=== PATIENT | female | born 1980 | race Caucasian/White ===

== ENCOUNTER 2019-08-14 06:38 | Emergency (ER) | payer BC ==
[~2019-08-14] VITALS: Ht 162.6 cm; Wt 68.0 kg
[2019-08-14] MEDS ORDERED: SUCR1TAB31 PO (06:50)
[2019-08-14] MEDS ORDERED: HYOS-19 PO (06:50)
[2019-08-14] MEDS ORDERED: DICY10CA59 PO (06:50)
[2019-08-14] MEDS ORDERED: PANT40TA2 PO (06:50)
--- NOTE | 2019-08-14 06:50 | NUR ---
Patient ambulated with stable gait. Speech is clear, speaks in complete sentences. No acute neuro deficits noted. A/Ox4. Patient came for c/o RUQ abd pain for 2 days, patient has had poor apetite. Pain 9/10, radiating to the back. Respiratory even and unlabored, no cough no sob. No s/sx of acute cardiovascular distress noted. Reports nausea but no vomiting or any symptoms--no dysuria.
[2019-08-14] MEDS ORDERED: IV NORMAL SALINE 1000 ML BAG IV ONE (07:15)
[2019-08-14] MEDS ORDERED: HYDROMORPHONE 2 MG/1 ML DISP.SYRIN ONE (07:28)
[2019-08-14] MEDS ORDERED: ONDANSETRON 4 MG/2 ML VIAL ONE (07:28)
[2019-08-14] MEDS ORDERED: ONDANSETRON 4 MG/2 ML VIAL IV ONE (07:30)
[2019-08-14] MEDS ORDERED: HYDROMORPHONE 1 MG/1 ML DISP.SYRIN IV ONE (07:30)
[2019-08-14 07:42] LABS: BASOPHILS % (AUTO) 0.6 % (0.0-2.0); EOSINOPHILS # (AUTO) 0.5 K/uL (0.0-0.7); EOSINOPHILS % (AUTO) 6.1 % (0.0-7.0); HEMATOCRIT 36.5 % (31.2-41.9); HEMOGLOBIN 12.1 g/dL (10.9-14.3); LYMPHOCYTES # (AUTO) 2.9 K/uL (20.0-40.0); LYMPHOCYTES % (AUTO) 38.2 % (20.5-51.5); MEAN CORPUSCULAR HGB CONC 33 g/dL (32.3-35.6); MEAN CORPUSCULAR VOLUME 87.1 fL (75.5-95.3); MONOCYTES # (AUTO) 0.6 K/uL (2.0-10.0); MONOCYTES % (AUTO) 8.6 % (0.0-11.0); NEUTROPHILS # (AUTO) 3.5 K/uL (1.8-8.9); NEUTROPHILS % (AUTO) 46.5 % (38.5-71.5); PLATELET COUNT (AUTO) 324 K/uL (179-408); RED BLOOD CELL COUNT(AUTO) 4.19 MIL/uL (3.63-4.92); WHITE BLOOD COUNT (AUTO) 7.5 K/uL (3.8-11.8)
[2019-08-14 07:53] LABS: BILIRUBIN,DIRECT 0.1 mg/dL (0.0-0.2); BILIRUBIN,TOTAL 0.3 mg/dL (0.2-1.0); CREATININE 0.7 mg/dL (0.6-1.3); POTASSIUM 3.3 mmol/L (3.5-5.1); TOTAL PROTEIN, SERUM 6.8 g/dL (6.4-8.2)
--- NOTE | 2019-08-14 08:09 | NUR ---
US Kezia hartmann, at bedside for scan
--- NOTE | 2019-08-14 08:55 | NUR ---
Patient discharged to home in stable conditon. Written and verbal after care instructions given. Patient verbalizes understanding of instructions. IV removed. Catheter intact and site benign. Pressure and 4x4 gauze applied to site. No bleeding noted. Patient ambulated with stable gait. Instructed patient that she may not drive d/t medications administered. Patient stated she will get picked up.
[2019-08-14 08:56] LABS: *BILIRUBIN,URIN NEGATIVE (NEGATIVE); *COLOR,URINE YELLOW (YELLOW); *KETONES,URINE TRACE (NEGATIVE); *URINE HCG, QUAL NEGATIVE (NEGATIVE); *UROBILINOGEN,URINE 0.2 E.U./dl (NORMAL); LEUKOCYTE ESTERASE ,URINE NEGATIVE (NEGATIVE); NITRITE, URINE NEGATIVE (NEGATIVE); PH,URINE 6.5 (5.0-8.0); UGLUCOSE NEGATIVE (NEGATIVE)
[2019-08-14 08:57] LABS: *BLOOD, URINE TRACE (NEGATIVE); *CLARITY,URINE HAZY (CLEAR)
[2019-08-14 08:59] VITALS: BP 116/73
[2019-08-14 09:14] LABS: RBC,URINE 0-3 /HPF (0-3)
[2019-08-14 09:15] LABS: BACTERIA,URINE FEW /HPF (NONE SEEN); SQUAMOUS EPITHELIAL CELL,UR MANY /HPF (NONE SEEN)
== END 2019-08-14 09:00 | disposition home or self-care (01) ==
LOC: ER 06:44
DX: R10.13 Epigastric pain (principal); R10.11 Right upper quadrant pain; R11.0 Nausea; Z88.1 Allergy status to other antibiotic agents; Z79.2 Long term (current) use of antibiotics; Z79.899 Other long term (current) drug therapy
CPT/HCPCS: 36415; 76705; 80048; 80076; 81000; 81001; 83690; 84703; 85025; 96374; 96375; 99284; J1170; J2405; A4663; J7030

== ENCOUNTER 2019-09-19 19:16 | Emergency (ER) | payer BC ==
[~2019-09-19 19:16] MED LIST: DICY10CA59 PO; HYOS-19 PO; PANT40TA2 PO; SUCR1TAB31 PO
--- NOTE | 2019-09-19 20:00 | NUR ---
Patient was called to be triaged. Patient was not present. Patient was not triaged or seen by ERMD.
== END 2019-09-19 20:48 | disposition left against medical advice (07) ==
LOC: ER 19:20
DX: Z53.21 Procedure and treatment not carried out due to patient leaving prior to being seen by health care provider (principal)

== ENCOUNTER 2019-09-21 16:23 | Emergency (ER) | payer BC ==
[~2019-09-21] VITALS: Ht 162.6 cm; Wt 67.6 kg
--- NOTE | 2019-09-21 17:00 | NUR ---
Per ER admitting pt and family were seen walking out of the ER. Pt did not notify ER nursing staff about leaving the ER.
== END 2019-09-21 17:21 | disposition left against medical advice (07) ==
LOC: ER 16:24
DX: Z53.21 Procedure and treatment not carried out due to patient leaving prior to being seen by health care provider (principal); Z79.899 Other long term (current) drug therapy
CPT/HCPCS: A4663

== ENCOUNTER 2021-05-07 14:31 | Emergency (ER) | payer BC ==
[~2021-05-07] VITALS: Ht 162.6 cm; Wt 63.5 kg
--- NOTE | 2021-05-07 14:56 | NUR ---
DR Lema at the bedside for MSE.
[2021-05-07 15:31] LABS: HEMATOCRIT 34.7 % (31.2-41.9); MEAN CORPUSCULAR HEMOGLOBIN 28.7 uug (24.7-32.8); MEAN CORPUSCULAR VOLUME 85.2 fL (75.5-95.3); PLATELET COUNT (AUTO) 315 K/uL (179-408)
[2021-05-07 15:35] LABS: CREATININE 0.9 mg/dL (0.6-1.3); POTASSIUM 3.4 mmol/L (3.5-5.1)
[2021-05-07 15:41] LABS: BILIRUBIN,DIRECT 0.2 mg/dL (0.0-0.2); BILIRUBIN,TOTAL 0.5 mg/dL (0.2-1.0); TOTAL PROTEIN, SERUM 7.8 g/dL (6.4-8.2)
--- NOTE | 2021-05-07 16:10 | NUR ---
Pt Lab result faxed to Pt's PMD, per Pt's request.
--- NOTE | 2021-05-07 16:28 | NUR ---
Patient discharged to home in stable condition. Written and verbal after care instructions given. Patient verbalizes understanding of instructions. Stressed follow up or return to ER for worsening s/s.
[2021-05-07 16:29] VITALS: BP 116/60
== END 2021-05-07 16:30 | disposition home or self-care (01) ==
LOC: ER 14:31
DX: R50.9 Fever, unspecified (principal); K83.8 Other specified diseases of biliary tract; Z88.0 Allergy status to penicillin
CPT/HCPCS: 36415; 83690; 85025; A4663